=== PATIENT | female | born 1970 | race Caucasian/White ===

== ENCOUNTER 2016-12-07 15:57 | Emergency (ER) | payer SELFPAY ==
[2016-12-07 16:15] VITALS: BP 130/93
--- NOTE | 2016-12-07 16:16 | ED Physician Chart ---
Chief Complaint/HPI - Patient Information Date Seen:: 12/07/16 Time Seen:: 16:00 Chief Complaint:: finger pain History of Present Illness:: 46-year-old female complains of acute, severe, constant, aching, nonradiating, 10 out of 10, fourth right finger pain that started after she fell and used her hand to break the fall. Has associated deformity finger. Allergies:: Allergies Allergy/AdvReac Type Severity Reaction Status Date / Time Sulfa (Sulfonamide AdvReac Verified 12/07/16 16:13 Antibiotics) Vitals:: Vital Signs - 8 hr 12/07/16 16:15 BP 130/93 Historian:: Patient Review:: Nurse's Note Reviewed Review of Systems - Review of Systems Other: Complete system review otherwise unremarkable except as noted in HPI. Past Medical History - Past Medical History Past Medical History: No significant medical hx Family History: None Social History: Smoker, No Alcohol, No Drug Use, Other Surgical History: None Psychiatricy History: None Medication: None Family Medical History - Family Member Paternal History Unknown: Yes Ethnicity: Non- Physical Exam - Physical Examination Other:: INITIAL VITAL SIGNS: Reviewed by me GENERAL: Alert and interactive. No acute distress HEAD: Head is normocephalic and atraumatic EYES: EOMI. . No scleral icterus. No conjunctival injection ENT: Moist mucous membranes. NECK: Supple. No masses. Full range of motion RESPIRATORY: No tachypnea. Clear breath sounds bilaterally. No wheezing, rales, or rhonchi CV: Regular rate and rhythm. No murmurs, rubs, or gallops ABDOMEN: Soft, non-distended, non-tender. No guarding. No rebound. No masses. EXTREMITIES: Right fourth finger is deformed. There is good neurovascular status of the distal tip. SKIN: Warm and dry. No obvious rashes. NEUROLOGIC: Alert and oriented. Face is symmetric. Speech is normal. Moves all extremities equally. Motor and sensory distally intact. Labs/Radiology/EKG Results - Radiology Results Results: X-ray right fourth finger 3 views was interpreted independently and contemporaneously by Doug Modi MD: Spiral fracture to right fourth proximal phalange No acute dislocations No soft tissue foreign bodies Overall impression: Spiral fracture of the right fourth proximal phalange Assessment - Assessment General Assessment: SMOKING CESSATION COUNSELING: I spent greater than 3 minutes at the bedside with the patient discussing the benefits of smoking cessation, including decreased risk of heart disease, lung cancer, and emphysema. We also discussed strategies for smoking cessation, including pharmaceutical options. The patient was also encouraged to follow up with the primary care physician for outpatient follow-up. Splint Care: Splint applied, Splint obs Post Procedure/Splint Exam: No Active Bleeding, Full Range of Motion, Neuro/ Vascular Exam Comments:: Finger splint to right fourth finger placed Splint Assessment: Neurovascularly intact post splint placement with good fit. ED Septic Shock - . Is Septic Shock (SBP<90, OR Lactate>4 mmol\L) present?: No - <6hrs of presentation: Vital Signs: Vital Signs - 8 hr 12/07/16 16:15 BP 130/93 Reassessment (Disposition) - Reassessment Reassessment:: Spiral fracture to right fourth proximal phalanges. Slightly displaced. Reduced. Splint placed. Post-splint check shows good neurovascular status. Gave Tylenol by mouth. Prescribed Tylenol. Follow-up PCP 1-2 days. Return to ER precautions given. Patient understands and agrees the plan. Reassessment Condition:: Improved - Diagnosis Diagnosis:: Right fourth proximal phalanges spiral fracture, acute, first visit Pre-hypertension - Aftercare/Follow up Instructions Aftercare/Follow-Up Instructions:: Counseled pt regarding lab results/diagnosis & need follow up, Refer to Discharge Instructions Medication Prescribed:: Acetaminophen - Patient Disposition Discharge/Transfer:: Home Time:: 16:38 Condition at Disposition:: Improved ED Discharge Plan - Patient Disposition Admit/Discharge/Transfer: PT DISCHARGED HOME Condition at Disposition: Improved Instructions: Finger Fracture, Wiye-gf-Oanc
--- NOTE | 2016-12-08 11:14 | Diagnostic Imaging Report ---
Right fourth finger 3 views Indication: Trauma Comparison: none Findings: There is an oblique fracture of the shaft of the fourth proximal phalanx with displacement. Surrounding soft tissue swelling is seen. No dislocation. Impression: Oblique, displaced fracture involving the fourth proximal phalanx. ER was way of the findings at the time of the exam.
== END 2016-12-07 17:00 | disposition home or self-care (01) ==
LOC: ER 15:57
DX: S62.614A Displaced fracture of proximal phalanx of right ring finger, initial encounter for closed fracture (principal); F17.200 Nicotine dependence, unspecified, uncomplicated; Z88.2 Allergy status to sulfonamides; W19.XXXA Unspecified fall, initial encounter; Y93.89 Activity, other specified; Y92.89 Other specified places as the place of occurrence of the external cause; Y99.8 Other external cause status
CPT/HCPCS: 73140-TC-F8; Z7502; Z7610

== ENCOUNTER 2018-03-28 15:31 | Inpatient (IN) | payer MEDICAID ==
--- NOTE | 2018-03-28 16:27 | ED Physician Chart ---
ED Chief Complaint/HPI - Patient Information Date Seen:: 03/28/18 Time Seen:: 16:00 Chief Complaint:: Right Gluteal Redness History of Present Illness:: onset x 3 days of right gluteus erythema, pain, and swelling after an insect bite 3 days ago; pt's last tetanus shot: > 5 years; pt denies H/As, LOC, S/T, neck pain, cough, C/P, SOB, Abd. Pain, A/N/V/D/C, fever, chills, or urinary s/s Allergies:: Allergies Allergy/AdvReac Type Severity Reaction Status Date / Time Sulfa (Sulfonamide AdvReac Verified 12/07/16 16:13 Antibiotics) Vitals:: Vital Signs - 8 hr 03/28/18 16:09 Temp 98.6 F HR 111 RR 16 BP 116/74 O2 Sat % 96 Historian:: Patient Review:: Nurse's Note Reviewed ED Review of Systems - Review of Systems General/Constitutional: No fever, No chills, No weight loss, No weakness, No diaphoresis, No edema, No loss of appetite Skin: Skin lesions, Rash, No bruising Head: No headache, No light-headedness Eyes: No loss of vision, No pain, No diplopia ENT: No earache, No nasal drainage, No sore throat, No tinnitus Neck: No neck pain, No swelling, No thyromegaly, No stiffness, No mass noted Cardio Vascular: No chest pain, No palpitations, No PND, No orthopnea, No edema Pulmonary: No SOB, No cough, No sputum, No wheezing GI: No nausea, No vomiting, No diarrhea, No pain, No melena, No hematochezia, No constipation, No hematemesis G/U: No dysuria, No frequency, No hematuria, No nacturia Medical Observer: No vaginal discharge, No abnormal vaginal bleed, No contraction Musculoskeletal: No bone or joint pain, No back pain, No muscle pain Endocrine: No polyuria, No polydipsia Psychiatric: No prior psych history, No depression, No anxiety, No suicidal ideation, No homicidal ideation, No auditory hallucination, No visual hallucination Hematopoietic: No bruising, No lymphadenopathy Allergic/Immuno: No urticaria, No angioedema Neurological: No syncope, No focal symptoms, No weakness, No paresthesia, No headache, No seizure, No dizziness, No confusion, No vertigo ED Past Medical History - Past Medical History Obtainable: Yes Past Medical History: No significant medical hx Family History: None Social History: Non Smoker, No Alcohol, No Drug Use, Surgical History: None Psychiatricy History: None Medication: Reviewed Family Medical History - Family Member Paternal History Unknown: Yes Ethnicity: Non- ED Physical Exam - Physical Examination General/Constitutional: Awake, Well-developed, well-nourished, Alert, No distress, GCS 15, Non-toxic appearing, Ambulatory Head: Atraumatic Eyes: Lids, conjuctiva normal, PERRL, EOMI Skin: No rash, No skin lesions, No ecchymosis, Well hydrated, No lymphadenopathy Other Skin comments:: + Right Gluteus Abscess and Cellulitis; good NV functions ENMT: External ears, nose nl, TM canals nl, Nasal exam nl, Lips, teeth, gums nl , Oropharynx nl, Tonsils nl Neck: Nontender, Full ROM w/o pain, No JVD, No nuchal rigidity, No bruit, No mass, No stridor Respiratory: Nl effort/Exclusion, Clear to Auscultation, No Wheeze/Rhonchi/Rales Cardio Vascular: RRR, No murmur, gallop, rubs, NL S1 S2, Carotid/Femoral/Distal pulses equal bilaterally GI: No tenderness/rebounding/guarding, No organomegaly, No hernia, Normal BS's, Nondistended, No mass/bruits, No McBurney tenderness : No CVA tenderness Extremities: No tenderness or effusion, Full ROM, normal strength in all extremities, No edema, Normal digits & nails Neuro/Psych: Alert/oriented, DTR's symmetric, Normal sensory exam, Normal motor strength, Judgement/insight normal, Mood normal, Normal gait, No focal deficits Misc: Normal back, No paraspinal tenderness ED Labs/Radiology/EKG Results - Lab Results Comments:: Na+: 129; K+: 3.2; WBC: 11.4 ED Septic Shock - . Is Septic Shock (SBP<90, OR Lactate>4 mmol\L) present?: No - <6hrs of presentation: Vital Signs: Vital Signs - 8 hr 03/28/18 16:09 Temp 98.6 F HR 111 RR 16 BP 116/74 O2 Sat % 96 ED Reassessment (Disposition) - Reassessment Reassessment Condition:: Improved - Diagnosis Diagnosis:: Dx: Right Gluteus Cellulitis/Abscess; Sepsis; Hyponatremia; Hypokalemia; Leukocytosis - Aftercare/Follow up Instructions Aftercare/Follow-Up Instructions:: Counseled pt regarding lab results/diagnosis & need follow up, Counseled pt & family regarding lab results/diagnosis & need follow up - Patient Disposition Discharge/Transfer:: Acute Care w/in this hosp Accepting Physician:: Dr. Sloan Time Called:: 1749 Time Responded:: 17:50 Admitted to:: Med/Surg Spoke to:: Dr. Sloan Admitting Medical Physician:: Dr. Sloan Condition at Disposition:: Stable, Improved
[2018-03-28] MEDS ORDERED: Sodium Chloride 0.9% 1,000 ML IV ONE (16:56)
[2018-03-28 17:27] LABS: % EOSINOPHILS 0.7 % (0.0-5.0); % LYMPHOCYTES 9.7 % (20.0-50.0); % MONOCYTES 6.4 % (2.0-10.0); % NEUTROPHILS 83.2 % (40.0-80.0); EOSINOPHILE ABSOLUTE 0.1 Th/cmm (0.1-0.4); HEMATOCRIT 41.4 % (41.0-60); HEMOGLOBIN 14.2 gm/dL (12-16); LYMPHOCYTE ABSOLUTE 1.1 Th/cmm (1.5-3.0); MEAN CELL VOLUME 95.6 fl (81-100); MEAN CORPUSCULAR HEMOGLOBIN 32.7 pg (27.0-31.0); MEAN CORPUSCULAR HGB CONC 34.3 pg (28.0-36.0); MEAN PLATELET VOLUME 7.8 fl; MONOCYTE ABSOLUTE 0.7 Th/cmm (0.3-1.0); NEUTROPHILE ABSOLUTE 9.5 Th/cmm (1.8-8.0); PLATELET COUNT 553 Th/cmm (150-400); RED BLOOD COUNT 4.33 Mil/cmm (3.80-5.10); RED CELL DISTRIBUTION WIDTH 11.9 % (11.5-20.0); WHITE BLOOD COUNT 11.4 Th/cmm (4.8-10.8)
[2018-03-28 17:48] LABS: ALB/GLOB RATIO 1.1 (1.0-1.8); ALBUMIN 3.5 gm/dL (3.7-5.3); ALKALINE PHOSPHATASE 71 U/L (34-104); ANION GAP 9.7 (7.0-16.0); BILIRUBIN,TOTAL 0.6 mg/dL (0.3-1.0); BUN - UREA NITROGEN 6 mg/dL (7-25); CALCIUM SERUM 8.7 mg/dL (8.6-10.3); CARBON DIOXIDE 29.5 mEq/L (21.0-31.0); CHLORIDE 93 mEq/L (98-107); CREATININE - SERUM 0.7 mg/dL (0.6-1.2); CREATININE KINASE 27 U/L (30-223); GFR AFRICAN-AMERICAN > 60.0 ml/min (>90); GFR NON AFRICAN-AMERICAN > 60.0 ml/min; GLUCOSE 110 mg/dL (70-105); POTASSIUM SERUM 3.2 mEq/L (3.5-5.1); SGOT 8 U/L (13-39); SGPT/ALT 9 U/L (7-52); SODIUM SERUM 129 mEq/L (136-145); TOTAL PROTEIN,SERUM 6.8 gm/dL (6.0-8.3)
[2018-03-28] MEDS ORDERED: Potassium Chloride 20 mEq ER Tab PO ONE ×2 (18:04→19:21)
[2018-03-28 18:08] LABS: INR 1.03 (0.5-1.4); PROTHROMBIN TIME (TEST) 10.7 SECONDS (9.5-11.5)
[2018-03-28] MEDS ORDERED: Piperacillin Sodium/Tazobact 3.375 gm Vial IV ONE (19:32)
[2018-03-28] MEDS ORDERED: Morphine Sulfate 4 mg/mL 1mL Syr IV PRN (20:49)
[2018-03-28] MEDS: D5-0.45NS w/20 mEq KCL 1,000 ML IV SCH (21:21)
[2018-03-28 21:37] VITALS: BP 131/76
--- NOTE | 2018-03-28 21:40 | History & Physical ---
ADMIT DATE: 03/28/2018 CHIEF COMPLAINT: Right buttock's tenderness. HISTORY OF PRESENT ILLNESS: The patient is a 47-year-old female presented to the Emergency Room complaining of severe pain on the right buttocks for a few days' duration. Initial work up significant for abscess of the right buttock. The patient admitted to the hospital, started IV antibiotic. Dr. Jennings consulted on the case. The patient denies any nausea or vomiting. PAST MEDICAL HISTORY: Negative. PAST SURGICAL HISTORY: Negative. ALLERGIES: SULFA. MEDICATIONS: Clindamycin. SOCIAL HISTORY: She is a chronic smoker. No alcohol or drugs. FAMILY HISTORY: Noncontributory. REVIEW OF SYSTEMS: RENAL SYSTEM: No history of chronic renal disorder. CARDIOVASCULAR SYSTEM: No coronary artery disease. ENDOCRINE SYSTEM: No diabetes or thyroid problem. GASTROINTESTINAL SYSTEM: No upper or lower gastrointestinal bleed. NEUROLOGICAL SYSTEM: No seizure disorder. SKELETOMUSCULAR SYSTEM: Muscular dystrophy. HEMATOLOGIC SYSTEM: No bleeding tendencies. GENITOURINARY: No dysuria or hematuria. PHYSICAL EXAMINATION: GENERAL: She is awake, alert, oriented, not in distress. VITAL SIGNS: Temperature 98.3, heart rate 94, blood pressure 102/65. HEENT: Normocephalic. Pupils reacting to light and accommodation. Sclerae are clear. NECK: Supple. Negative for lymphadenopathy, JVD or bruit. CHEST: Air bilaterally normal. No rhonchi or wheezing. HEART: S1, S2 normal. No murmur or gallop. ABDOMEN: Soft, bowel sounds positive. EXTREMITIES: No edema. Examination of the right buttock seen for tenderness and swollen with fluctuation. NEUROLOGIC: Awake, alert, oriented. No focal motor deficit. ASSESSMENT: 1. Right buttock abscess. PLAN: The patient admitted to the hospital under Dr. Sloan's service, started on IV fluid, antibiotic. Dr. Jennings consulted on the case. The patient is a full code. JOB# [id number]
[2018-03-29 07:05] LABS: URINE MICROSCOPIC INDICATED? YES; URINE SOURCE MIDSTREAM
[2018-03-29 07:09] LABS: URINE BILIRUBIN NEGATIVE (NEGATIVE); URINE BLOOD TRACE (NEGATIVE); URINE GLUCOSE (UA) NEGATIVE (NEGATIVE); URINE KETONE NEGATIVE (NEGATIVE); URINE LEUKOCYTE ESTERASE NEGATIVE (NEGATIVE); URINE NITRATE NEGATIVE (NEGATIVE); URINE PH 6.5 (4.6 - 8.0); URINE PROTEIN NEGATIVE (NEGATIVE); URINE UROBILINOGEN 0.2 E.U./dL (0.2 - 1.0)
[2018-03-29 07:30] LABS: URINE CLARITY CLEAR (CLEAR); URINE COLOR YELLOW
[2018-03-29 07:37] LABS: URINE BACTERIA FEW /hpf (NONE SEEN); URINE EPITHELIAL CELLS MODERATE /lpf (FEW); URINE WBC 0-2 /hpf (0-5)
--- NOTE | 2018-03-29 08:27 | General Progress Note ---
Subjective - Review of Systems Service Date: 03/29/18 Events since last encounter: consult dictated drug screen ordered US of right buttocks ordered might require I and D depending on above test Objective - Results Result Diagrams: 03/28/18 16:23 03/28/18 16:23 Recent Labs: Laboratory Last Values WBC 11.4 Th/cmm (4.8-10.8) H 03/28/18 16:23 RBC 4.33 Mil/cmm (3.80-5.10) 03/28/18 16:23 Hgb 14.2 gm/dL (12-16) 03/28/18 16:23 Hct 41.4 % (41.0-60) 03/28/18 16:23 MCV 95.6 fl (81-100) 03/28/18 16:23 MCH 32.7 pg (27.0-31.0) H 03/28/18 16:23 MCHC Differential 34.3 pg (28.0-36.0) 03/28/18 16:23 RDW 11.9 % (11.5-20.0) 03/28/18 16:23 Plt Count 553 Th/cmm (150-400) H 03/28/18 16:23 MPV 7.8 fl 03/28/18 16:23 Neutrophils % 83.2 % (40.0-80.0) H 03/28/18 16:23 Lymphocytes % 9.7 % (20.0-50.0) L 03/28/18 16:23 Monocytes % 6.4 % (2.0-10.0) 03/28/18 16:23 Eosinophils % 0.7 % (0.0-5.0) 03/28/18 16:23 Basophils % 0.0 % (0.0-2.0) 03/28/18 16:23 PT 10.7 SECONDS (9.5-11.5) 03/28/18 16:23 INR 1.03 (0.5-1.4) 03/28/18 16:23 PTT (Actin FS) 25.9 SECONDS (26.0-38.0) L 03/28/18 16:23 Sodium 129 mEq/L (136-145) L 03/28/18 16:23 Potassium 3.2 mEq/L (3.5-5.1) L 03/28/18 16:23 Chloride 93 mEq/L (98-107) L 03/28/18 16:23 Carbon Dioxide 29.5 mEq/L (21.0-31.0) 03/28/18 16:23 Anion Gap 9.7 (7.0-16.0) 03/28/18 16:23 BUN 6 mg/dL (7-25) L 03/28/18 16:23 Creatinine 0.7 mg/dL (0.6-1.2) 03/28/18 16:23 Est GFR ( Amer) > 60.0 ml/min (>90) 03/28/18 16:23 Est GFR (Non-Af Amer) > 60.0 ml/min 03/28/18 16:23 BUN/Creatinine Ratio 8.6 03/28/18 16:23 Glucose 110 mg/dL (70-105) H 03/28/18 16:23 Whole Bld Lactic Acid 1.61 mmol/L (0.60-1.99) 03/28/18 16:23 Calcium 8.7 mg/dL (8.6-10.3) 03/28/18 16:23 Total Bilirubin 0.6 mg/dL (0.3-1.0) 03/28/18 16:23 AST 8 U/L (13-39) L 03/28/18 16:23 ALT 9 U/L (7-52) 03/28/18 16:23 Alkaline Phosphatase 71 U/L (34-104) 03/28/18 16:23 Creatine Kinase 27 U/L (30-223) L 03/28/18 16:23 Troponin I < 0.01 ng/mL (0.01-0.05) L 03/28/18 17:10 Total Protein 6.8 gm/dL (6.0-8.3) 03/28/18 16:23 Albumin 3.5 gm/dL (3.7-5.3) L 03/28/18 16:23 Globulin 3.3 gm/dL 03/28/18 16:23 Albumin/Globulin Ratio 1.1 (1.0-1.8) 03/28/18 16:23 Serum , Qual NEGATIVE (NEGATIVE) 03/28/18 17:10 Urine Source MIDSTREAM 03/29/18 06:45 Urine Color YELLOW 03/29/18 06:45 Urine Clarity CLEAR (CLEAR) 03/29/18 06:45 Urine pH 6.5 (4.6 - 8.0) 03/29/18 06:45 Ur Specific [place] <= 1.005 (1.005-1.030) 03/29/18 06:45 Urine Protein NEGATIVE mg/dL (NEGATIVE) 03/29/18 06:45 Urine Glucose (UA) NEGATIVE mg/dL (NEGATIVE) 03/29/18 06:45 Urine Ketones NEGATIVE mg/dL (NEGATIVE) 03/29/18 06:45 Urine Blood TRACE (NEGATIVE) 03/29/18 06:45 Urine Nitrate NEGATIVE (NEGATIVE) 03/29/18 06:45 Urine Bilirubin NEGATIVE (NEGATIVE) 03/29/18 06:45 Urine Urobilinogen 0.2 E.U./dL (0.2 - 1.0) 03/29/18 06:45 Ur Leukocyte Esterase NEGATIVE (NEGATIVE) 03/29/18 06:45 Urine RBC 2-5 /hpf (0-5) 03/29/18 06:45 Urine WBC 0-2 /hpf (0-5) 03/29/18 06:45 Ur Epithelial Cells MODERATE /lpf (FEW) 03/29/18 06:45 Urine Bacteria FEW /hpf (NONE SEEN) 03/29/18 06:45 Urine Test NEGATIVE 03/29/18 06:45 - Physical Exam Vitals and I&O: Vital Signs Temp 97.3 F 03/29/18 08:00 Pulse 107 03/29/18 08:00 Resp 18 03/29/18 08:00 BP 98/56 03/29/18 08:00 Pulse Ox 98 03/29/18 08:00 Intake & Output 03/28/18 03/29/18 03/29/18 18:59 06:59 18:59 Intake Total 580 Balance 580 Weight (lbs) 63.503 kg 81.193 kg 81.193 kg Intake: Intake, IV Amount 100 Piperacillin Sodium/ 50 Tazobact 3.375 gm In Sodium Chloride 0.9% 50 ml @ 100 mls/hr IV X1 ONE Rx#:[id number] Oral 480 Other: # Voids 2 Weight Source Patient stated Bedscale Bedscale Active Medications: Current Medications Acetaminophen (Tylenol) 650 mg PO Q4H PRN PRN Reason: Fever > 101 Stop: 05/27/18 20:51 Last Admin: 03/29/18 05:51 Dose: 650 mg Enoxaparin Sodium (Lovenox) 40 mg SUBQ DAILY [facility] Stop: 05/28/18 08:59 Potassium Chloride/Dextrose/Sod Cl (D5-0.45ns W/20 Meq Kcl) 1,000 mls @ 75 mls/ hr IV .[id number] [facility] Stop: 05/27/18 20:59 Last Admin: 03/28/18 21:21 Dose: 75 mls/hr Miscellaneous (Pharmacy To Dose) 1 ea MC PRN [facility] Stop: 05/27/18 19:59 Morphine Sulfate (Morphine) 4 mg IV Q4H PRN PRN Reason: Pain (Severe) Stop: 05/27/18 20:59 - Procedures Procedures: Procedures Procedure Code Date EMERGENCY DEPT VISIT 74972 11/30/11 EPISIOTOMY 73.6 11/19/98 EKG 75.32 11/19/98 INJECT RH IMMUNE GLOBUL 99.11 11/19/98 INJECT/INFUSE NEC 99.29 08/16/11 INJECTION, SC/IM 41003 11/19/98 OBSTETRICAL CARE 53199 11/19/98 RH [place] 53824 11/19/98
[2018-03-29] MEDS: Enoxaparin 40 mg/0.4 mL 0.4mL Syr SUBQ SCH (08:38)
--- NOTE | 2018-03-29 10:18 | Consultation ---
DATE OF CONSULTATION: 03/29/2018 SURGICAL CONSULTATION REFERRING PHYSICIAN: Dr. Sloan. REASON FOR CONSULTATION: Possible abscess, right buttock. Thank you for referring this patient to me. HISTORY OF PRESENT ILLNESS: This is a 47-year-old female who claims she may have an insect bite on the right buttocks about 5 days ago. He came into the Emergency Room and was admitted. LABORATORY STUDIES: Show WBC slightly elevated to 11,400, hemoglobin is 14.2. No band elevation. PT, PTT are normal. Potassium slightly low at 3.2, blood sugar was normal at 110. The patient admits to smoking marijuana, but denies other drug intake. She probably drinks occasionally. PHYSICAL EXAMINATION: Shows the patient who is alert and awake. There is a large red area in the right buttocks with a question of fluctuance indicating some abscess, who also has been done, x-ray studies. PLAN: We will order ultrasound on the buttocks and drug screen. JOB# [id number]
--- NOTE | 2018-03-29 21:10 | Internal Medicine Prog Note ---
Internal Medicine Subjective - Subjective Service Date: 03/29/18 Patient seen and examined:: without staff Patient is:: verbal, in bed, talking Patient Complaints of:: other (RIGHT BUTOCK PAIN AND FEVER) Internal Medicine Objective - Results Result Diagrams: 03/28/18 16:23 03/28/18 16:23 Recent Labs: Laboratory Last Values WBC 11.4 Th/cmm (4.8-10.8) H 03/28/18 16:23 RBC 4.33 Mil/cmm (3.80-5.10) 03/28/18 16:23 Hgb 14.2 gm/dL (12-16) 03/28/18 16:23 Hct 41.4 % (41.0-60) 03/28/18 16:23 MCV 95.6 fl (81-100) 03/28/18 16:23 MCH 32.7 pg (27.0-31.0) H 03/28/18 16: MCHC Differential 34.3 pg (28.0-36.0) 03/28/18 16: RDW 11.9 % (11.5-20.0) 03/28/18 16:23 Plt Count 553 Th/cmm (150-400) H 03/28/18 16:23 MPV 7.8 fl 03/28/18 16:23 Neutrophils % 83.2 % (40.0-80.0) H 03/28/18 16:23 Lymphocytes % 9.7 % (20.0-50.0) L 03/28/18 16:23 Monocytes % 6.4 % (2.0-10.0) 03/28/18 16:23 Eosinophils % 0.7 % (0.0-5.0) 03/28/18 16:23 Basophils % 0.0 % (0.0-2.0) 03/28/18 16:23 PT 10.7 SECONDS (9.5-11.5) 03/28/18 16:23 INR 1.03 (0.5-1.4) 03/28/18 16:23 PTT (Actin FS) 25.9 SECONDS (26.0-38.0) L 03/28/18 16:23 Sodium 129 mEq/L (136-145) L 03/28/18 16:23 Potassium 3.2 mEq/L (3.5-5.1) L 03/28/18 16:23 Chloride 93 mEq/L (98-107) L 03/28/18 16:23 Carbon Dioxide 29.5 mEq/L (21.0-31.0) 03/28/18 16:23 Anion Gap 9.7 (7.0-16.0) 03/28/18 16:23 BUN 6 mg/dL (7-25) L 03/28/18 16:23 Creatinine 0.7 mg/dL (0.6-1.2) 03/28/18 16:23 Est GFR ( Amer) > 60.0 ml/min (>90) 03/28/18 16:23 Est GFR (Non-Af Amer) > 60.0 ml/min 03/28/18 16:23 BUN/Creatinine Ratio 8.6 03/28/18 16:23 Glucose 110 mg/dL (70-105) H 03/28/18 16:23 Whole Bld Lactic Acid 1.61 mmol/L (0.60-1.99) 03/28/18 16:23 Calcium 8.7 mg/dL (8.6-10.3) 03/28/18 16:23 Total Bilirubin 0.6 mg/dL (0.3-1.0) 03/28/18 16:23 AST 8 U/L (13-39) L 03/28/18 16:23 ALT 9 U/L (7-52) 03/28/18 16:23 Alkaline Phosphatase 71 U/L (34-104) 03/28/18 16:23 Creatine Kinase 27 U/L (30-223) L 03/28/18 16:23 Troponin I < 0.01 ng/mL (0.01-0.05) L 03/28/18 17:10 Total Protein 6.8 gm/dL (6.0-8.3) 03/28/18 16:23 Albumin 3.5 gm/dL (3.7-5.3) L 03/28/18 16:23 Globulin 3.3 gm/dL 03/28/18 16:23 Albumin/Globulin Ratio 1.1 (1.0-1.8) 03/28/18 16:23 Serum , Qual NEGATIVE (NEGATIVE) 03/28/18 17:10 Urine Source MIDSTREAM 03/29/18 06:45 Urine Color YELLOW 03/29/18 06:45 Urine Clarity CLEAR (CLEAR) 03/29/18 06:45 Urine pH 6.5 (4.6 - 8.0) 03/29/18 06:45 Ur Specific [place] <= 1.005 (1.005-1.030) 03/29/18 06:45 Urine Protein NEGATIVE mg/dL (NEGATIVE) 03/29/18 06:45 Urine Glucose (UA) NEGATIVE mg/dL (NEGATIVE) 03/29/18 06:45 Urine Ketones NEGATIVE mg/dL (NEGATIVE) 03/29/18 06:45 Urine Blood TRACE (NEGATIVE) 03/29/18 06:45 Urine Nitrate NEGATIVE (NEGATIVE) 03/29/18 06:45 Urine Bilirubin NEGATIVE (NEGATIVE) 03/29/18 06:45 Urine Urobilinogen 0.2 E.U./dL (0.2 - 1.0) 03/29/18 06:45 Ur Leukocyte Esterase NEGATIVE (NEGATIVE) 03/29/18 06:45 Urine RBC 2-5 /hpf (0-5) 03/29/18 06:45 Urine WBC 0-2 /hpf (0-5) 03/29/18 06:45 Ur Epithelial Cells MODERATE /lpf (FEW) 03/29/18 06:45 Urine Bacteria FEW /hpf (NONE SEEN) 03/29/18 06:45 Urine Test NEGATIVE 03/29/18 06:45 - Physical Exam Vitals and I&O: Vital Signs Temp 98.3 F 03/29/18 15:49 Pulse 102 03/29/18 15:49 Resp 18 03/29/18 15:49 BP 97/55 03/29/18 15:49 Pulse Ox 98 03/29/18 15:49 Intake & Output 03/29/18 03/29/18 03/30/18 06:59 18:59 06:59 Intake Total 580 550 Balance 580 550 Weight (lbs) 81.193 kg 81.193 kg Intake: Intake, IV Amount 100 250 Piperacillin Sodium/ 50 Tazobact 3.375 gm In Sodium Chloride 0.9% 50 ml @ 100 mls/hr IV X1 ONE Rx#:[id number] Vancomycin HCl 1.25 gm In 250 Sodium Chloride 0.9% 250 ml @ 165 mls/hr IV Q12HR @0900,2100 J[facility] Rx#: [id number] Oral 480 300 Other: # Voids 2 3 Weight Source Bedscale Bedscale Active Medications: Current Medications Acetaminophen (Tylenol) 650 mg PO Q4H PRN PRN Reason: Fever > 101 Stop: 05/27/18 20:51 Last Admin: 03/29/18 20:16 Dose: 650 mg Enoxaparin Sodium (Lovenox) 40 mg SUBQ DAILY [facility] Stop: 05/28/18 08:59 Last Admin: 03/29/18 08:38 Dose: 40 mg Potassium Chloride/Dextrose/Sod Cl (D5-0.45ns W/20 Meq Kcl) 1,000 mls @ 75 mls/ hr IV .[id number] [facility] Stop: 05/27/18 20:59 Last Admin: 03/28/18 21:21 Dose: 75 mls/hr Vancomycin HCl 1.25 gm/ Sodium (Chloride) 250 mls @ 165 mls/hr IV Q12HR@0900, 2100 [facility] Stop: 05/28/18 10:59 Last Admin: 03/29/18 20:50 Dose: 165 mls/hr Miscellaneous (Vancomycin Iv Per Pharmacy) 1 ea MC DAILY [facility] Stop: 05/27/18 19:59 Morphine Sulfate (Morphine) 4 mg IV Q4H PRN PRN Reason: Pain (Severe) Stop: 05/27/18 20:59 General: alert HEENT: NC/AT, PERRLA, EOMI, anicteric sclerae, throat clear Cardiovascular: RRR, Normal S1, Normal S2 Abdomen: soft, non-tender, non-distended Extremities: clear Neurological: no change Other physical findings: SWOLLEN AND TENDERNESS OF RIGHT BUTTOCK - Procedures Procedures: Procedures Procedure Code Date EMERGENCY DEPT VISIT 20112 11/30/11 EPISIOTOMY 73.6 11/19/98 EKG 75.32 11/19/98 INJECT RH IMMUNE GLOBUL 99.11 11/19/98 INJECT/INFUSE NEC 99.29 08/16/11 INJECTION, SC/IM 00390 11/19/98 OBSTETRICAL CARE 99164 11/19/98 RH [place] FULL-[place]SE IM 52600 11/19/98 Internal Medicine Assmt/Plan - Assessment Assessment: 1.RIGHT BUTTOCK ABSCESS - Plan Plan: CONSULT DR.NELISH WEISS.ZOSYN 3.375 GRAM IV Q 6H.
[2018-03-30 04:22] LABS: AMPHETAMINE URINE POSITIVE (NEGATIVE); BARBITURATES URINE NEGATIVE (NEGATIVE); BENZODIAZEPINES QUAL URINE NEGATIVE (NEGATIVE); CANNABINOID THC NEGATIVE (NEGATIVE); COCAINE METABOLITE QUAL URINE NEGATIVE (NEGATIVE); METHADONE URINE NEGATIVE (NEGATIVE); METHAMPHETAMINES QUAL URINE NEGATIVE (NEGATIVE); OPIATES (MORPHINE) QUAL. URINE NEGATIVE (NEGATIVE); PHENCYCLIDINE (PCP) URINE NEGATIVE (NEGATIVE); TRICYCLICS (TCA) QUAL. URINE NEGATIVE (NEGATIVE)
[2018-03-30 08:06] LABS: HEMATOCRIT 41.7 % (41.0-60); HEMOGLOBIN 13.8 gm/dL (12-16); MEAN CELL VOLUME 96.3 fl (81-100); MEAN CORPUSCULAR HEMOGLOBIN 31.8 pg (27.0-31.0); MEAN CORPUSCULAR HGB CONC 33.1 pg (28.0-36.0); MEAN PLATELET VOLUME 7.9 fl; PLATELET COUNT 460 Th/cmm (150-400); RED BLOOD COUNT 4.33 Mil/cmm (3.80-5.10); WHITE BLOOD COUNT 14.4 Th/cmm (4.8-10.8)
[2018-03-30 08:21] LABS: ALB/GLOB RATIO 0.9 (1.0-1.8); ALBUMIN 3.3 gm/dL (3.7-5.3); ANION GAP 11.7 (7.0-16.0); BILIRUBIN,TOTAL 0.6 mg/dL (0.3-1.0); CALCIUM SERUM 9.1 mg/dL (8.6-10.3); CARBON DIOXIDE 28.9 mEq/L (21.0-31.0); CREATININE - SERUM 1.3 mg/dL (0.6-1.2); GFR AFRICAN-AMERICAN 56.2 ml/min (>90); GFR NON AFRICAN-AMERICAN 46.5 ml/min; POTASSIUM SERUM 3.6 mEq/L (3.5-5.1); TOTAL PROTEIN,SERUM 6.8 gm/dL (6.0-8.3)
[2018-03-30] MEDS: Enoxaparin 40 mg/0.4 mL 0.4mL Syr SUBQ SCH (09:22)
[2018-03-30 09:26] LABS: BAND NEUTROPHILE 2 % (0-10); EOSINOPHIL 1 % (0-5); LYMPHOCYTE 6 % (20-50); MANUAL DIFF REQUIRED? YES; MONOCYTE 10 % (2-10); NEUTROPHILS 81 % (40-80); TOTAL CELLS COUNTED 100
[2018-03-30 09:27] LABS: PLATELET ESTIMATE INCREASED PLATELETS (NORMAL)
--- NOTE | 2018-03-30 11:11 | General Progress Note ---
Subjective - Review of Systems Service Date: 03/30/18 Events since last encounter: I and D abscess tomorrow US today, no results yet Objective - Results Result Diagrams: 03/30/18 07:49 03/30/18 07:49 Recent Labs: Laboratory Last Values WBC 14.4 Th/cmm (4.8-10.8) H 03/30/18 07:49 RBC 4.33 Mil/cmm (3.80-5.10) 03/30/18 07:49 Hgb 13.8 gm/dL (12-16) 03/30/18 07:49 Hct 41.7 % (41.0-60) 03/30/18 07:49 MCV 96.3 fl (81-100) 03/30/18 07:49 MCH 31.8 pg (27.0-31.0) H 03/30/18 07:49 MCHC Differential 33.1 pg (28.0-36.0) 03/30/18 07:49 RDW 12.0 % (11.5-20.0) 03/30/18 07:49 Plt Count 460 Th/cmm (150-400) H 03/30/18 07:49 MPV 7.9 fl 03/30/18 07:49 Neutrophils % OFFICE SUPPORT SPECIALIST 03/30/18 07:49 Band Neutrophils % 2 % (0-10) 03/30/18 07:49 Lymphocytes % OFFICE SUPPORT SPECIALIST 03/30/18 07:49 Monocytes % OFFICE SUPPORT SPECIALIST 03/30/18 07:49 Eosinophils % OFFICE SUPPORT SPECIALIST 03/30/18 07:49 Basophils % OFFICE SUPPORT SPECIALIST 03/30/18 07:49 Neutrophils (Manual) 81 % (40-80) H 03/30/18 07:49 Lymphocytes 6 % (20-50) L 03/30/18 07:49 Monocytes 10 % (2-10) 03/30/18 07:49 Eosinophils 1 % (0-5) 03/30/18 07:49 Platelet Estimate INCREASED PLATELETS (NORMAL) 03/30/18 07:49 PT 10.7 SECONDS (9.5-11.5) 03/28/18 16:23 INR 1.03 (0.5-1.4) 03/28/18 16:23 PTT (Actin FS) 25.9 SECONDS (26.0-38.0) L 03/28/18 16:23 Sodium 136 mEq/L (136-145) 03/30/18 07:49 Potassium 3.6 mEq/L (3.5-5.1) 03/30/18 07:49 Chloride 99 mEq/L (98-107) 03/30/18 07:49 Carbon Dioxide 28.9 mEq/L (21.0-31.0) 03/30/18 07:49 Anion Gap 11.7 (7.0-16.0) 03/30/18 07:49 BUN 8 mg/dL (7-25) 03/30/18 07:49 Creatinine 1.3 mg/dL (0.6-1.2) H 03/30/18 07:49 Est GFR ( Amer) 56.2 ml/min (>90) 03/30/18 07:49 Est GFR (Non-Af Amer) 46.5 ml/min 03/30/18 07:49 BUN/Creatinine Ratio 6.2 03/30/18 07:49 Glucose 109 mg/dL (70-105) H 03/30/18 07:49 Whole Bld Lactic Acid 1.61 mmol/L (0.60-1.99) 03/28/18 16:23 Calcium 9.1 mg/dL (8.6-10.3) 03/30/18 07:49 Total Bilirubin 0.6 mg/dL (0.3-1.0) 03/30/18 07:49 AST 11 U/L (13-39) L 03/30/18 07:49 ALT 9 U/L (7-52) 03/30/18 07:49 Alkaline Phosphatase 82 U/L (34-104) 03/30/18 07:49 Creatine Kinase 27 U/L (30-223) L 03/28/18 16:23 Troponin I < 0.01 ng/mL (0.01-0.05) L 03/28/18 17:10 Total Protein 6.8 gm/dL (6.0-8.3) 03/30/18 07:49 Albumin 3.3 gm/dL (3.7-5.3) L 03/30/18 07:49 Globulin 3.5 gm/dL 03/30/18 07:49 Albumin/Globulin Ratio 0.9 (1.0-1.8) L 03/30/18 07:49 Serum , Qual NEGATIVE (NEGATIVE) 03/28/18 17:10 Urine Source MIDSTREAM 03/29/18 06:45 Urine Color YELLOW 03/29/18 06:45 Urine Clarity CLEAR (CLEAR) 03/29/18 06:45 Urine pH 6.5 (4.6 - 8.0) 03/29/18 06:45 Ur Specific [place] <= 1.005 (1.005-1.030) 03/29/18 06:45 Urine Protein NEGATIVE mg/dL (NEGATIVE) 03/29/18 06:45 Urine Glucose (UA) NEGATIVE mg/dL (NEGATIVE) 03/29/18 06:45 Urine Ketones NEGATIVE mg/dL (NEGATIVE) 03/29/18 06:45 Urine Blood TRACE (NEGATIVE) 03/29/18 06:45 Urine Nitrate NEGATIVE (NEGATIVE) 03/29/18 06:45 Urine Bilirubin NEGATIVE (NEGATIVE) 03/29/18 06:45 Urine Urobilinogen 0.2 E.U./dL (0.2 - 1.0) 03/29/18 06:45 Ur Leukocyte Esterase NEGATIVE (NEGATIVE) 03/29/18 06:45 Urine RBC 2-5 /hpf (0-5) 03/29/18 06:45 Urine WBC 0-2 /hpf (0-5) 03/29/18 06:45 Ur Epithelial Cells MODERATE /lpf (FEW) 03/29/18 06:45 Urine Bacteria FEW /hpf (NONE SEEN) 03/29/18 06:45 Urine Test NEGATIVE 03/29/18 06:45 Vancomycin Trough 10.3 ug/mL (5-10) H 03/30/18 07:49 Urine Opiates Screen NEGATIVE (NEGATIVE) 03/30/18 03:10 Urine Methadone Screen NEGATIVE (NEGATIVE) 03/30/18 03:10 Ur Barbiturates Screen NEGATIVE (NEGATIVE) 03/30/18 03:10 Ur Tricyclics Screen NEGATIVE (NEGATIVE) 03/30/18 03:10 Ur Phencyclidine Scrn NEGATIVE (NEGATIVE) 03/30/18 03:10 Amphetamines Screen POSITIVE (NEGATIVE) H 03/30/18 03:10 U Methamphetamines Scrn NEGATIVE (NEGATIVE) 03/30/18 03:10 U Benzodiazepines Scrn NEGATIVE (NEGATIVE) 03/30/18 03:10 U Cocaine Metab Screen NEGATIVE (NEGATIVE) 03/30/18 03:10 U Cannabinoids Screen NEGATIVE (NEGATIVE) 03/30/18 03:10 - Physical Exam Vitals and I&O: Vital Signs Temp 98.0 F 03/30/18 03:00 Pulse 110 03/30/18 03:00 Resp 18 03/30/18 08:00 BP 95/51 03/30/18 03:00 Pulse Ox 95 03/30/18 03:00 Intake & Output 03/29/18 03/30/18 03/30/18 18:59 06:59 18:59 Intake Total 550 650 Balance 550 650 Weight (lbs) 81.193 kg 81.193 kg Intake: Intake, IV Amount 250 250 Vancomycin HCl 1.25 gm In 250 250 Sodium Chloride 0.9% 250 ml @ 165 mls/hr IV Q12HR @0900,2100 [facility] Rx#: [id number] Oral 300 400 Other: # Voids 3 Weight Source Bedscale Bedscale Active Medications: Current Medications Acetaminophen (Tylenol) 650 mg PO Q4H PRN PRN Reason: Fever > 101 Stop: 05/27/18 20:51 Last Admin: 03/30/18 09:22 Dose: 650 mg Enoxaparin Sodium (Lovenox) 40 mg SUBQ DAILY [facility] Stop: 05/28/18 08:59 Last Admin: 03/30/18 09:22 Dose: 40 mg Potassium Chloride/Dextrose/Sod Cl (D5-0.45ns W/20 Meq Kcl) 1,000 mls @ 75 mls/ hr IV .[id number] [facility] Stop: 05/27/18 20:59 Last Admin: 03/28/18 21:21 Dose: 75 mls/hr Vancomycin HCl 1.25 gm/ Sodium (Chloride) 250 mls @ 165 mls/hr IV Q12HR@0900, 2100 [facility] Stop: 05/28/18 10:59 Last Admin: 03/30/18 09:22 Dose: 165 mls/hr Piperacillin Sod/Tazobactam (Sod 3.375 gm/ Sodium Chloride) 50 mls @ 100 mls/ hr IV Q6HR [facility] Stop: 05/29/18 00:00 Miscellaneous (Vancomycin Iv Per Pharmacy) 1 ea [facility] DAILY [facility] Stop: 05/27/18 19:59 Morphine Sulfate (Morphine) 4 mg IV Q4H PRN PRN Reason: Pain (Severe) Stop: 05/27/18 20:59 - Procedures Procedures: Procedures Procedure Code Date EMERGENCY DEPT VISIT 34299 11/30/11 EPISIOTOMY 73.6 11/19/98 EKG 75.32 11/19/98 INJECT RH IMMUNE GLOBUL 99.11 11/19/98 INJECT/INFUSE NEC 99.29 08/16/11 INJECTION, SC/IM 19040 11/19/98 OBSTETRICAL CARE 78840 11/19/98 RH IG FULL-[place]SE IM [id number] 11/19/98
--- NOTE | 2018-03-30 13:24 | Diagnostic Imaging Report ---
Pelvic ultrasound (Limited, gluteal regions) HISTORY: Mass. Sonographic sector images obtained over the right gluteal, but not region. There is a large (approximate 11.6 cm) fairly well-defined complex hypoechoic region that occupies the right gluteal area. Etiology is uncertain. Inflammatory change cannot be excluded. A CT or MRI scan may provide additional characterization and assessment. IMPRESSION: 1. Relatively large complex region within the right gluteal soft tissues. Etiology is uncertain. Findings may be associated with inflammatory change. A CT or MRI scan would provide additional characterization and assessment.
--- NOTE | 2018-03-30 13:34 | Diagnostic Imaging Report ---
Portable chest x-ray History: Cough Allowing for portable technique the heart size is normal. No focal pulmonary parenchymal processes. No hilar or mediastinal abnormalities. Impression: No acute abnormalities.
[2018-03-30] MEDS ORDERED: Morphine Sulfate 2 mg/mL 1mL Syr IV PRN (14:31)
--- NOTE | 2018-03-30 20:04 | Internal Medicine Prog Note ---
Internal Medicine Subjective - Subjective Service Date: 03/30/18 Patient seen and examined:: with staff (SHE STILL HAS PAIN) Patient is:: verbal, in bed, talking Patient Complaints of:: other (RIGHT BUTOCK PAIN AND FEVER) Internal Medicine Objective - Results Result Diagrams: 03/30/18 07:49 03/30/18 07:49 Recent Labs: Laboratory Last Values WBC 14.4 Th/cmm (4.8-10.8) H 03/30/18 07:49 RBC 4.33 Mil/cmm (3.80-5.10) 03/30/18 07:49 Hgb 13.8 gm/dL (12-16) 03/30/18 07:49 Hct 41.7 % (41.0-60) 03/30/18 07:49 MCV 96.3 fl (81-100) 03/30/18 07:49 MCH 31.8 pg (27.0-31.0) H 03/30/18 07:49 MCHC Differential 33.1 pg (28.0-36.0) 03/30/18 07:49 RDW 12.0 % (11.5-20.0) 03/30/18 07:49 Plt Count 460 Th/cmm (150-400) H 03/30/18 07:49 MPV 7.9 fl 03/30/18 07:49 Neutrophils % HOUSE MANAGER 03/30/18 07:49 Band Neutrophils % 2 % (0-10) 03/30/18 07:49 Lymphocytes % HOUSE MANAGER 03/30/18 07:49 Monocytes % HOUSE MANAGER 03/30/18 07:49 Eosinophils % HOUSE MANAGER 03/30/18 07:49 Basophils % HOUSE MANAGER 03/30/18 07:49 Neutrophils (Manual) 81 % (40-80) H 03/30/18 07:49 Lymphocytes 6 % (20-50) L 03/30/18 07:49 Monocytes 10 % (2-10) 03/30/18 07:49 Eosinophils 1 % (0-5) 03/30/18 07:49 Platelet Estimate INCREASED PLATELETS (NORMAL) 03/30/18 07:49 PT 10.7 SECONDS (9.5-11.5) 03/28/18 16:23 INR 1.03 (0.5-1.4) 03/28/18 16:23 PTT (Actin FS) 25.9 SECONDS (26.0-38.0) L 03/28/18 16:23 Sodium 136 mEq/L (136-145) 03/30/18 07:49 Potassium 3.6 mEq/L (3.5-5.1) 03/30/18 07:49 Chloride 99 mEq/L (98-107) 03/30/18 07:49 Carbon Dioxide 28.9 mEq/L (21.0-31.0) 03/30/18 07:49 Anion Gap 11.7 (7.0-16.0) 03/30/18 07:49 BUN 8 mg/dL (7-25) 03/30/18 07:49 Creatinine 1.3 mg/dL (0.6-1.2) H 03/30/18 07:49 Est GFR ( Amer) 56.2 ml/min (>90) 03/30/18 07:49 Est GFR (Non-Af Amer) 46.5 ml/min 03/30/18 07:49 BUN/Creatinine Ratio 6.2 03/30/18 07:49 Glucose 109 mg/dL (70-105) H 03/30/18 07:49 Whole Bld Lactic Acid 1.61 mmol/L (0.60-1.99) 03/28/18 16:23 Calcium 9.1 mg/dL (8.6-10.3) 03/30/18 07:49 Total Bilirubin 0.6 mg/dL (0.3-1.0) 03/30/18 07:49 AST 11 U/L (13-39) L 03/30/18 07:49 ALT 9 U/L (7-52) 03/30/18 07:49 Alkaline Phosphatase 82 U/L (34-104) 03/30/18 07:49 Creatine Kinase 27 U/L (30-223) L 03/28/18 16:23 Troponin I < 0.01 ng/mL (0.01-0.05) L 03/28/18 17:10 Total Protein 6.8 gm/dL (6.0-8.3) 03/30/18 07:49 Albumin 3.3 gm/dL (3.7-5.3) L 03/30/18 07:49 Globulin 3.5 gm/dL 03/30/18 07:49 Albumin/Globulin Ratio 0.9 (1.0-1.8) L 03/30/18 07:49 Serum , Qual NEGATIVE (NEGATIVE) 03/28/18 17:10 Urine Source MIDSTREAM 03/29/18 06:45 Urine Color YELLOW 03/29/18 06:45 Urine Clarity CLEAR (CLEAR) 03/29/18 06:45 Urine pH 6.5 (4.6 - 8.0) 03/29/18 06:45 Ur Specific [place] <= 1.005 (1.005-1.030) 03/29/18 06:45 Urine Protein NEGATIVE mg/dL (NEGATIVE) 03/29/18 06:45 Urine Glucose (UA) NEGATIVE mg/dL (NEGATIVE) 03/29/18 06:45 Urine Ketones NEGATIVE mg/dL (NEGATIVE) 03/29/18 06:45 Urine Blood TRACE (NEGATIVE) 03/29/18 06:45 Urine Nitrate NEGATIVE (NEGATIVE) 03/29/18 06:45 Urine Bilirubin NEGATIVE (NEGATIVE) 03/29/18 06:45 Urine Urobilinogen 0.2 E.U./dL (0.2 - 1.0) 03/29/18 06:45 Ur Leukocyte Esterase NEGATIVE (NEGATIVE) 03/29/18 06:45 Urine RBC 2-5 /hpf (0-5) 03/29/18 06:45 Urine WBC 0-2 /hpf (0-5) 03/29/18 06:45 Ur Epithelial Cells MODERATE /lpf (FEW) 03/29/18 06:45 Urine Bacteria FEW /hpf (NONE SEEN) 03/29/18 06:45 Urine Test NEGATIVE 03/29/18 06:45 Vancomycin Trough 10.3 ug/mL (5-10) H 03/30/18 07:49 Urine Opiates Screen NEGATIVE (NEGATIVE) 03/30/18 03:10 Urine Methadone Screen NEGATIVE (NEGATIVE) 03/30/18 03:10 Ur Barbiturates Screen NEGATIVE (NEGATIVE) 03/30/18 03:10 Ur Tricyclics Screen NEGATIVE (NEGATIVE) 03/30/18 03:10 Ur Phencyclidine Scrn NEGATIVE (NEGATIVE) 03/30/18 03:10 Amphetamines Screen POSITIVE (NEGATIVE) H 03/30/18 03:10 U Methamphetamines Scrn NEGATIVE (NEGATIVE) 03/30/18 03:10 U Benzodiazepines Scrn NEGATIVE (NEGATIVE) 03/30/18 03:10 U Cocaine Metab Screen NEGATIVE (NEGATIVE) 03/30/18 03:10 U Cannabinoids Screen NEGATIVE (NEGATIVE) 03/30/18 03:10 - Physical Exam Vitals and I&O: Vital Signs Temp 99.1 F 03/30/18 17:50 Pulse 105 03/30/18 17:50 Resp 17 03/30/18 17:50 BP 108/66 03/30/18 17:50 Pulse Ox 97 03/30/18 17:50 Intake & Output 03/30/18 03/30/18 03/31/18 06:59 18:59 06:59 Intake Total 650 390 Balance 650 390 Weight (lbs) 81.193 kg 81.193 kg Intake: Intake, IV Amount 250 50 Piperacillin Sodium/ 50 Tazobact 3.375 gm In Sodium Chloride 0.9% 50 ml @ 100 mls/hr IV Q6HR [facility] Rx#:[id number] Vancomycin HCl 1.25 gm In 250 Sodium Chloride 0.9% 250 ml @ 165 mls/hr IV Q12HR @0900,2100 [facility] Rx#: [id number] Oral 400 340 Other: Weight Source Bedscale Estimated Active Medications: Current Medications Acetaminophen (Tylenol) 650 mg PO Q4H PRN PRN Reason: Fever > 101 Stop: 05/27/18 20:51 Last Admin: 03/30/18 15:59 Dose: 650 mg Enoxaparin Sodium (Lovenox) 40 mg SUBQ DAILY [facility] Stop: 05/28/18 08:59 Last Admin: 03/30/18 09:22 Dose: 40 mg Potassium Chloride/Dextrose/Sod Cl (D5-0.45ns W/20 Meq Kcl) 1,000 mls @ 75 mls/ hr IV .[id number] [facility] Stop: 05/27/18 20:59 Last Admin: 03/28/18 21:21 Dose: 75 mls/hr Vancomycin HCl 1.25 gm/ Sodium (Chloride) 250 mls @ 165 mls/hr IV Q12HR@0900, 2100 [facility] Stop: 05/28/18 10:59 Last Admin: 03/30/18 09:22 Dose: 165 mls/hr Piperacillin Sod/Tazobactam (Sod 3.375 gm/ Sodium Chloride) 50 mls @ 100 mls/ hr IV Q6HR [facility] Stop: 05/29/18 00:00 Last Admin: 03/30/18 17:14 Dose: 100 mls/hr Miscellaneous (Vancomycin Iv Per Pharmacy) 1 ea [facility] DAILY [facility] Stop: 05/27/18 19:59 Morphine Sulfate (Morphine) 2 mg IV Q4H PRN PRN Reason: Pain (Severe) Stop: 05/27/18 20:59 Ondansetron HCl (Zofran) 4 mg IV Q4H PRN PRN Reason: Nausea / Vomiting Stop: 04/04/18 14:29 General: alert HEENT: NC/AT, PERRLA, EOMI, anicteric sclerae, throat clear Cardiovascular: RRR, Normal S1, Normal S2 Abdomen: soft, non-tender, non-distended Extremities: clear Neurological: no change - Procedures Procedures: Procedures Procedure Code Date EMERGENCY DEPT VISIT 90081 11/30/11 EPISIOTOMY 73.6 11/19/98 EKG 75.32 11/19/98 INJECT RH IMMUNE GLOBUL 99.11 11/19/98 INJECT/INFUSE NEC 99.29 08/16/11 INJECTION, SC/IM 02351 11/19/98 OBSTETRICAL CARE 98381 11/19/98 RH IG FULL-DOSE IM 13405 11/19/98 Internal Medicine Assmt/Plan - Assessment Assessment: 1.RIGHT BUTTOCK ABSCESS - Plan Plan: CONTINUE ON CURRENT MEDICATION AND DIET.
[2018-03-30 21:56] LABS: URINE MICROSCOPIC INDICATED? YES; URINE SOURCE CLEAN C
[2018-03-30 21:58] LABS: URINE BILIRUBIN NEGATIVE (NEGATIVE); URINE BLOOD TRACE (NEGATIVE); URINE GLUCOSE (UA) NEGATIVE (NEGATIVE); URINE KETONE NEGATIVE (NEGATIVE); URINE LEUKOCYTE ESTERASE NEGATIVE (NEGATIVE); URINE NITRATE NEGATIVE (NEGATIVE); URINE PH 5.5 (4.6 - 8.0); URINE PROTEIN NEGATIVE (NEGATIVE); URINE UROBILINOGEN 0.2 E.U./dL (0.2 - 1.0)
[2018-03-30 22:02] LABS: URINE COLOR YELLOW
[2018-03-30 22:05] LABS: URINE CLARITY HAZY (CLEAR)
[2018-03-30 22:07] LABS: URINE WBC 0-2 /hpf (0-5)
[2018-03-30 22:09] LABS: URINE BACTERIA OCCASIONAL /hpf (NONE SEEN); URINE EPITHELIAL CELLS MANY /lpf (FEW); URINE RBC 0-2 /hpf (0-5)
[2018-03-31] MEDS ORDERED: Propofol 10 mg/mL 20mL Vial **SURGERY USE ONLY IV ONE (07:35)
[2018-03-31] MEDS: Enoxaparin 40 mg/0.4 mL 0.4mL Syr SUBQ SCH (09:48)
[2018-03-31] MEDS: D5-0.45NS w/20 mEq KCL 1,000 ML IV SCH (12:01)
--- NOTE | 2018-03-31 15:12 | Internal Medicine Prog Note ---
Internal Medicine Subjective - Subjective Service Date: 03/31/18 Patient seen and examined:: with staff (SHE HAD SURGERY TODAY.) Patient is:: verbal, in bed, talking Patient Complaints of:: other (RIGHT BUTOCK PAIN AND FEVER) Internal Medicine Objective - Results Result Diagrams: 03/30/18 07:49 03/30/18 07:49 Recent Labs: Laboratory Last Values WBC 14.4 Th/cmm (4.8-10.8) H 03/30/18 07:49 RBC 4.33 Mil/cmm (3.80-5.10) 03/30/18 07:49 Hgb 13.8 gm/dL (12-16) 03/30/18 07:49 Hct 41.7 % (41.0-60) 03/30/18 07:49 MCV 96.3 fl (81-100) 03/30/18 07:49 MCH 31.8 pg (27.0-31.0) H 03/30/18 07:49 MCHC Differential 33.1 pg (28.0-36.0) 03/30/18 07:49 RDW 12.0 % (11.5-20.0) 03/30/18 07:49 Plt Count 460 Th/cmm (150-400) H 03/30/18 07:49 MPV 7.9 fl 03/30/18 07:49 Neutrophils % SHADOWGRAPH SCALE OPERATOR 03/30/18 07:49 Band Neutrophils % 2 % (0-10) 03/30/18 07:49 Lymphocytes % SHADOWGRAPH SCALE OPERATOR 03/30/18 07:49 Monocytes % SHADOWGRAPH SCALE OPERATOR 03/30/18 07:49 Eosinophils % SHADOWGRAPH SCALE OPERATOR 03/30/18 07:49 Basophils % SHADOWGRAPH SCALE OPERATOR 03/30/18 07:49 Neutrophils (Manual) 81 % (40-80) H 03/30/18 07:49 Lymphocytes 6 % (20-50) L 03/30/18 07:49 Monocytes 10 % (2-10) 03/30/18 07:49 Eosinophils 1 % (0-5) 03/30/18 07:49 Platelet Estimate INCREASED PLATELETS (NORMAL) 03/30/18 07:49 PT 10.7 SECONDS (9.5-11.5) 03/28/18 16:23 INR 1.03 (0.5-1.4) 03/28/18 16:23 PTT (Actin FS) 25.9 SECONDS (26.0-38.0) L 03/28/18 16:23 Sodium 136 mEq/L (136-145) 03/30/18 07:49 Potassium 3.6 mEq/L (3.5-5.1) 03/30/18 07:49 Chloride 99 mEq/L (98-107) 03/30/18 07:49 Carbon Dioxide 28.9 mEq/L (21.0-31.0) 03/30/18 07:49 Anion Gap 11.7 (7.0-16.0) 03/30/18 07:49 BUN 8 mg/dL (7-25) 03/30/18 07:49 Creatinine 1.3 mg/dL (0.6-1.2) H 03/30/18 07:49 Est GFR ( Amer) 56.2 ml/min (>90) 03/30/18 07:49 Est GFR (Non-Af Amer) 46.5 ml/min 03/30/18 07:49 BUN/Creatinine Ratio 6.2 03/30/18 07:49 Glucose 109 mg/dL (70-105) H 03/30/18 07:49 Whole Bld Lactic Acid 1.61 mmol/L (0.60-1.99) 03/28/18 16:23 Calcium 9.1 mg/dL (8.6-10.3) 03/30/18 07:49 Total Bilirubin 0.6 mg/dL (0.3-1.0) 03/30/18 07:49 AST 11 U/L (13-39) L 03/30/18 07:49 ALT 9 U/L (7-52) 03/30/18 07:49 Alkaline Phosphatase 82 U/L (34-104) 03/30/18 07:49 Creatine Kinase 27 U/L (30-223) L 03/28/18 16:23 Troponin I < 0.01 ng/mL (0.01-0.05) L 03/28/18 17:10 Total Protein 6.8 gm/dL (6.0-8.3) 03/30/18 07:49 Albumin 3.3 gm/dL (3.7-5.3) L 03/30/18 07:49 Globulin 3.5 gm/dL 03/30/18 07:49 Albumin/Globulin Ratio 0.9 (1.0-1.8) L 03/30/18 07:49 Serum , Qual NEGATIVE (NEGATIVE) 03/28/18 17:10 Urine Source CLEAN C 03/30/18 17:34 Urine Color YELLOW 03/30/18 17:34 Urine Clarity HAZY (CLEAR) 03/30/18 17:34 Urine pH 5.5 (4.6 - 8.0) 03/30/18 17:34 Ur Specific [place] <= 1.005 (1.005-1.030) 03/30/18 17:34 Urine Protein NEGATIVE mg/dL (NEGATIVE) 03/30/18 17:34 Urine Glucose (UA) NEGATIVE mg/dL (NEGATIVE) 03/30/18 17:34 Urine Ketones NEGATIVE mg/dL (NEGATIVE) 03/30/18 17:34 Urine Blood TRACE (NEGATIVE) 03/30/18 17:34 Urine Nitrate NEGATIVE (NEGATIVE) 03/30/18 17:34 Urine Bilirubin NEGATIVE (NEGATIVE) 03/30/18 17:34 Urine Urobilinogen 0.2 E.U./dL (0.2 - 1.0) 03/30/18 17:34 Ur Leukocyte Esterase NEGATIVE (NEGATIVE) 03/30/18 17:34 Urine RBC 0-2 /hpf (0-5) 03/30/18 17:34 Urine WBC 0-2 /hpf (0-5) 03/30/18 17:34 Ur Epithelial Cells MANY /lpf (FEW) 03/30/18 17:34 Urine Bacteria OCCASIONAL /hpf (NONE SEEN) 03/30/18 17:34 Urine Test NEGATIVE 03/29/18 06:45 Vancomycin Trough 10.3 ug/mL (5-10) H 03/30/18 07:49 Urine Opiates Screen NEGATIVE (NEGATIVE) 03/30/18 03:10 Urine Methadone Screen NEGATIVE (NEGATIVE) 03/30/18 03:10 Ur Barbiturates Screen NEGATIVE (NEGATIVE) 03/30/18 03:10 Ur Tricyclics Screen NEGATIVE (NEGATIVE) 03/30/18 03:10 Ur Phencyclidine Scrn NEGATIVE (NEGATIVE) 03/30/18 03:10 Amphetamines Screen POSITIVE (NEGATIVE) H 03/30/18 03:10 U Methamphetamines Scrn NEGATIVE (NEGATIVE) 03/30/18 03:10 U Benzodiazepines Scrn NEGATIVE (NEGATIVE) 03/30/18 03:10 U Cocaine Metab Screen NEGATIVE (NEGATIVE) 03/30/18 03:10 U Cannabinoids Screen NEGATIVE (NEGATIVE) 03/30/18 03:10 - Physical Exam Vitals and I&O: Vital Signs Temp 99.5 F 03/31/18 04:00 Pulse 108 03/31/18 04:00 Resp 18 03/31/18 08:00 BP 102/55 03/31/18 04:00 Pulse Ox 94 03/31/18 04:00 Intake & Output 03/30/18 03/31/18 03/31/18 18:59 06:59 18:59 Intake Total 690 300 Balance 690 300 Weight (lbs) 81.193 kg Intake: Intake, IV Amount 350 300 Piperacillin Sodium/ 100 50 Tazobact 3.375 gm In Sodium Chloride 0.9% 50 ml @ 100 mls/hr IV Q6HR [facility] Rx#:[id number] Vancomycin HCl 1.25 gm In 250 250 Sodium Chloride 0.9% 250 ml @ 165 mls/hr IV Q12HR @0900,2100 [facility] Rx#: [id number] Oral 340 Other: Weight Source Estimated Active Medications: Current Medications Acetaminophen (Tylenol) 650 mg PO Q4H PRN PRN Reason: Fever > 101 Stop: 05/27/18 20:51 Last Admin: 03/30/18 20:23 Dose: 650 mg Enoxaparin Sodium (Lovenox) 40 mg SUBQ DAILY [facility] Stop: 05/28/18 08:59 Last Admin: 03/31/18 09:48 Dose: 40 mg Potassium Chloride/Dextrose/Sod Cl (D5-0.45ns W/20 Meq Kcl) 1,000 mls @ 75 mls/ hr IV .[id number] [facility] Stop: 05/27/18 20:59 Last Admin: 03/31/18 12:01 Dose: 75 mls/hr Vancomycin HCl 1.25 gm/ Sodium (Chloride) 250 mls @ 165 mls/hr IV Q12HR@0900, 2100 [facility] Stop: 05/28/18 10:59 Last Admin: 03/31/18 09:56 Dose: 165 mls/hr Piperacillin Sod/Tazobactam (Sod 3.375 gm/ Sodium Chloride) 50 mls @ 100 mls/ hr IV Q6HR [facility] Stop: 05/29/18 00:00 Last Admin: 03/31/18 05:24 Dose: 100 mls/hr Miscellaneous (Vancomycin Iv Per Pharmacy) 1 ea [facility] DAILY [facility] Stop: 05/27/18 19:59 Morphine Sulfate (Morphine) 2 mg IV Q4H PRN PRN Reason: Pain (Severe) Stop: 05/27/18 20:59 Last Admin: 03/31/18 00:13 Dose: 2 mg Ondansetron HCl (Zofran) 4 mg IV Q4H PRN PRN Reason: Nausea / Vomiting Stop: 04/04/18 14:29 Last Admin: 03/31/18 00:13 Dose: 4 mg General: alert HEENT: NC/AT, PERRLA, EOMI, anicteric sclerae, throat clear Cardiovascular: RRR, Normal S1, Normal S2 Abdomen: soft, non-tender, non-distended Extremities: clear Neurological: no change - Procedures Procedures: Procedures Procedure Code Date EMERGENCY DEPT VISIT 41480 11/30/11 EPISIOTOMY 73.6 11/19/98 EKG 75.32 11/19/98 INJECT RH IMMUNE GLOBUL 99.11 11/19/98 INJECT/INFUSE NEC 99.29 08/16/11 INJECTION, SC/IM 48303 11/19/98 OBSTETRICAL CARE 80283 11/19/98 RH IG FULL-DOSE IM 67403 11/19/98 Internal Medicine Assmt/Plan - Assessment Assessment: 1.RIGHT BUTTOCK ABSCESS AND SP INCISION AND DRAINAGE. - Plan Plan: CONTINUE ON CURRENT MEDICATION AND DIET.
--- NOTE | 2018-03-31 23:49 | Operative Report ---
DATE OF SURGERY: 03/31/2018 PREOPERATIVE DIAGNOSIS: Abscess, right buttock. POSTOPERATIVE DIAGNOSIS: Abscess, right buttock. OPERATION DONE: 1. Incision and drainage. 2. Placement of Juice drain. SURGEON: Johnson Jennings M.D. ANESTHESIA: General. ANESTHESIOLOGIST: John. ESTIMATED BLOOD LOSS: None. OPERATIVE FINDINGS: 700 mL of thick purulent material. Cultures done. DESCRIPTION OF PROCEDURE: The patient was given general anesthesia. She was then placed in the left lateral decubitus position. The right buttock was prepped with Betadine and draped. An incision was made on the fluctuant area of the abscess. Immediately, thick material was aspirated, measuring about 700 mL. The width of the cavity was about 20 cm. A Juice drain was placed in the cavity. The patient tolerated the procedure well. JOB# [id number]
--- NOTE | 2018-04-01 03:01 | Consultation ---
DATE OF CONSULTATION: 03/30/2018 PRIMARY CARE PHYSICIAN: Dr. Sloan. REASON FOR CONSULTATION: Cellulitis. HISTORY OF PRESENT ILLNESS: This is a 47-year-old female who was brought to the Emergency Room with complaint of pain and cellulitis of the right buttock area. The patient was found to have abscess. Dr. Jennings was consulted and scheduled for I and D on 04/01/2018. Infectious consultation was called for further treatment. PAST MEDICAL HISTORY: Tobacco abuse. FAMILY HISTORY: Negative. PERSONAL HISTORY: Tobacco abuse. REVIEW OF SYSTEMS: A 14-point review of system negative except as above. PHYSICAL EXAMINATION: GENERAL: The patient is a thin built young female. VITAL SIGNS: Temperature 100.1, pulse 107, respirations 18, and blood pressure 90/50. HEENT: Mild pallor, no icterus or plaque. NECK: Supple. No thyromegaly. LUNGS: Breath sounds bilateral ____. ABDOMEN: Soft. Bowel sounds normal ____ (culture ordered). NEUROLOGIC: No focal deficits. LABORATORY DATA AND DIAGNOSTIC STUDIES: White count 14,000, hemoglobin 13,and platelets 460. Chest x-ray shows clear lung lainez. DIAGNOSIS: Right gluteal abscess. PLAN: The patient was started on vancomycin and Zosyn. Wound culture ordered. Tobacco abuse counseling. Deep venous thrombosis prophylaxis, Lovenox. Pain control with morphine. For abscess, the patient is on vancomycin and Zosyn, pharmacy to adjust the medication. Thank you Dr. Sloan for this consultation. JOB# [id number]
== END 2018-03-31 16:54 | disposition left against medical advice (07) | DRG 720 ==
LOC: ER 15:31 → MSI 19:55
PROVIDERS: ADMIT Family Medicine; ATTEND Family Medicine
PROC: 0H98XZZ Drainage of Buttock Skin, External Approach (ICD-10-PCS; principal; 2018-03-31)
DX: A41.9 Sepsis, unspecified organism (principal); E87.1 Hypo-osmolality and hyponatremia; L02.31 Cutaneous abscess of buttock; Z88.2 Allergy status to sulfonamides; E87.6 Hypokalemia; Z68.31 Body mass index [BMI] 31.0-31.9, adult
CPT/HCPCS: 36415-UA; 71045-TC; 76856-TC; 80053-TC; 80202-TC; 80307; 81001-TC; 81025-TC; 82550-TC; 83605; 84484-TC; 84703-TC; 85007-TC; 85025-TC; 85027-TC; 85610-TC; 85730-TC; 87070-90; 87075-90; 87086-90; 87205-90; 90784; J1650; J2270; J2405; J2543; J2704; J3370; J7030; V2790; Z7610